=== PATIENT | female | born 1955 | race Caucasian/White ===

== ENCOUNTER 2016-11-28 09:28 | Observation (INO) | payer OTHER ==
[~2016-11-28] VITALS: Ht 167.6 cm; Wt 58.9 kg
[~2016-11-28 09:28] MED LIST: CYCL5TAB PO; HYDR4TAB PO; METH5TAB3 PO; RES15 PO
[2016-11-28 09:33] VITALS: BP 121/77; PULSE 103; RESP 18; O2SAT 95
--- NOTE | 2016-11-28 09:38 | ED.REPORT ---
HPI-Abd Pain F 40 and Over Date of Service Nov 28, 2016 ED Provider: Dr. Singh Pt is a 61 year old female with a hx of lung cancer presenting to the ED complaining of intermittent rectal pain onset over a week ago. Associated symptoms include constipation. She denies vomiting or fever. She reports that she has had normal colored stool, but that it has been a sort of "paste." Nursing Notes Stated Complaint: RECTUM SWELLING Chief Complaint: Female Abdominal Pain Nursing Notes Reviewed: Yes Allergies: Coded Allergies: Sulfa (Sulfonamide Antibiotics) (Verified Allergy, Unknown, 11/28/16) aspirin (Verified Adverse Reaction, Unknown, unknown, 11/28/16) Scheduled Amoxicillin/Clav K 875-125 mg (Augmentin 875-125 mg) 1 Each Tablet 1 TABLET PO BID Methadone (Methadone) 5 Mg Tablet 5 MG PO Q12H Scheduled PRN Hydrocortisone (Cortaid) 1 % Cream..g. 42 GM TP BID PRN PRN For Itching Hydromorphone (Hydromorphone) 4 Mg Tablet 4-8 MG PO Q4H PRN PRN Pain Polyethylene Glycol 3350 (Miralax) 17 Gm Powd.pack 17 GM PO DAILY PRN PRN For Constipation General Time Seen by MD: 09:38 Chief Complaint Other (Rectal pain) Hx Obtained From: Patient Arrived By: Walk-in Sudden in Onset?: No Onset Occurred: More than a week ago... Symptom Duration: Since onset Progression since Onset: Intermittent Quality: Painful Severity: Current: Moderate Severity: Maximum: Severe Recent Healthcare: No recent doctor visit, No recent hospitalization Similar Sx Previous: No Past Medical History Past Medical History 1. Metastatic lung cancer 2. Stroke in August 2015 without residual neurologic deficits 3. History of kidney stones. 4. She was told before that she has hepatitis C, but needs to be retested. 5. COPD 6. Degenerative joint disease 7. Gastroesophageal reflux disease. Past Surgical History Kidney stone removal, nasal surgery, and cleft palate surgery Smoking History Former Smoker Ambulatory Status Independent Review of Systems Constitutional: Denies: Fever GI: Reports: Constipation, Rectal pain, Denies: Nausea, Vomiting Complete sys rev & neg: except as marked. Physical Exam Vital Signs Vital Signs (First) Date Time Temp Pulse Resp B/P Pulse Ox O2 Delivery O2 Flow Rate FiO2 11/28/16 09:33 36.6 103 18 121/77 95 Room Air Initial VS: Reviewed Head / Eyes: Atraumatic, Normocephalic, PERRL ENT: Mucous membranes moist, Conjunctiva normal, No scleral icterus Neck: Supple, Non-tender, Full range of motion Skin: Warm, Dry, No cyanosis Neurologic: Alert, Oriented, Nonfocal Psychiatric: Mood/affect normal, Behavior normal, Normal thought content General/Constitutional: Awake, Alert, No acute distress, Well appearing Respiratory / Chest: No respiratory distress Abdomen: Non-tender, No distention Rectum / Perineum: Atraumatic, No gross blood Normal brown stool. No rectal prolapse. Perirectal fullness between the 12 o'clock and 2 o'clock position. Internal rectal mass 1 cm in size. Interpretation & Diagnostics Lab Results Interpretation Result Diagram: 11/28/16 1026 11/28/16 1026 Test 11/28/16 10:26 White Blood Count 12.6th/mm3 (3.8-10.1) Red Blood Count 4.59mil/mm3 (3.90-5.20) Hemoglobin 12.1g/dL (12.0-15.6) Hematocrit 37.7% (35.0-46.0) Mean Corpuscular Volume 82.1fL (81-100) Mean Corpuscular Hemoglobin 26.4pg (27.0-35.0) Mean Corpuscular Hemoglobin Concent 32.1% (32.0-37.0) Red Cell Distribution Width 16.4% (12.3-15.4) Platelet Count 434bil/L (150-400) Neutrophils (%) (Auto) 72.1% (40-74) Lymphocytes (%) (Auto) 8.6% (14-46) Monocytes (%) (Auto) 15.0% (4-12) Eosinophils (%) (Auto) 3.5% (0-5) Basophils (%) (Auto) 0.4% (0-3) Sodium Level 136mEq/L (134-144) Potassium Level 3.1mEq/L (3.5-5.2) Chloride Level 97mEq/L (97-108) Carbon Dioxide Level 25mmol/L (18-29) Blood Urea Nitrogen 7mg/dL (8-27) Creatinine 0.40mg/dL (0.57-1.00) Estimat Glomerular Filtration Rate 233mL/min (>59) Glucose Level 149mg/dL (60-99) Calcium Level 10.3mg/dL (8.5-10.1) Total Bilirubin 0.3mg/dL (0.0-1.2) Aspartate Amino Transf (AST/SGOT) 21U/L (0-50) Alanine Aminotransferase (ALT/SGPT) 22U/L (0-32) Alkaline Phosphatase 60U/L (25-165) Total Protein 7.2g/dL (6.4-8.4) Albumin 3.1g/dL (3.4-5.0) CT Abd / Pelvis Interpretation IMPRESSION: 1. A large amount of stool in colon and rectum. 2. No rectal mass identified on CT. Small rectal mass may not be visible on CT. Endoscopic examination suggested if clinically indicated. 3. Atherosclerosis. Dictated by: Isabel Ramsey M.D. on 11/28/2016 at 13:40 Study type: Abdominal CT IV contrast, Abdom CT oral contrast Interpretation / Wet Read by: Interpret - Radiologist Re-Eval/Medical Decision Med Decision/Clinical Course Patient has severe constipation, overall the story that she gives sounds like severe Constipation with associated straining and dilation of the rectal area and possibly intermittent rectal prolapse. on digital rectal exam, there is no prolapse or external hemorrhoid, she is not completely impacted, the stool is beyond the tip of my glove, and I am unable to do a digital manual extraction. Stool was brown and nonbloody She also had a mass or fullness from approximately 12:00 to 2 o'clock position in the perirectal area that overall does not feel the full clinical picture of abscess, and raise some suspicion about the possibility of cancer, after discussion with surgery, needle aspiration was performed and no purulent drainage was expressed. Additionally there was an internal mass of approximately a centimeter or less in size unclear whether this was an internal hemorrhoid or some other cancer. In terms of treatment, she received mag citrate and an enema. The plan was to discharge her home. Unfortunately she did not have the meaningful or substantive bowel movement while in the ER and is extremely hesitant to leave without having her chronic constipation resolved. She is ultimately admitted. Re-Evaluation/Progress #1: Time of Eval: 13:57 Patient Status: Condition improved Re-Evaluation/Progress Note: Discussed consultation with Dr. Bolivar and plan for discharge and follow up. Re-Evaluation/Progress #2: Time of Eval: 14:22 Patient Status: Condition improved Re-Evaluation/Progress Note: Performed an incision and drainage of the external mass. No drainage. No pus. Re-Evaluation/Progress #3: Time of Eval: 15:55 Patient Status: Condition improved Re-Evaluation/Progress Note: Pt refuses to leave the ER until she has had a bowel movement. Re-Evaluation/Progress #4: Time of Eval: 16:54 Patient Status: Condition improved Re-Evaluation/Progress Note: Discussed again the plan for discharge and follow up with surgery next week. Pt stating that she would like to be admitted until then. I explained to her why that is not necessary. The pt's mother is still insisting that the pt be admitted. Re-Evaluation/Progress #5: Time of Eval: 17:11 Re-Evaluation/Progress Note: Pt once again refuses to go home. Insists that she must be admitted. Consultation #1: Referral / Consult Name: Nathan Bolivar MD Call Returned at: 13:[address]: Will see patient, Will see in office, Agrees with eval, Agrees with plan Note: Discussed the pt plan, he recommends that the pt follow up with him in the clinic. Consultation #2: Referral / Consult Name: Nathan Bolivar MD Call Returned at: 14:02 Note: Dr. Bolivar agrees with starting antibiotics and close follow up in clinic. Don't cut into the mass, however could try needle aspiration. Consultation #3: Referral / Consult Name: Nathan Bolivar MD Call Returned at: 17:13 Note: Informed Dr. Bolivar that the pt will be admitted. They will call him in the morning if needed. Consultation #4: Referral / Consult Name: Tommy Guadalupe MD Call Returned at: 17:[address]: Accepts admit Counseled Regarding: Diagnosis, Lab results, Need for follow-up, When/why to return to ED Discharge & Departure Primary Impression: Constipation Constipation type: unspecified constipation type Qualified Code: K59.00 - Constipation, unspecified Additional Impression: Rectal mass Disposition: ADMITTED TO HOSPITAL Discharge Condition All VS Reviewed: Yes Condition: Improved Referrals: George Ag MD (PCP) Nathan Bolivar MD Scribe Attestation Portions of this note were transcribed by Renee Ambrose. Ruth, Dr. Singh personally performed the history, physical exam and medical decision-making; I reviewed and confirmed the accuracy of the information in the transcribed note. Signed by: Stephenie Ryan, 11/28/2016 at 1446. copies to: George Ag MD; Nathan Bolivar MD, Timothy S DO Nov 28, 2016 09:38 RENEE AMBROSE Nov 28, 2016 09:49 Nathan Bolivar MD Attestation Portions of this note were transcribed by Renee Ambrose. I, Dr. Singh personally performed the history, physical exam and medical decision-making; I reviewed and confirmed the accuracy of the information in the transcribed note. Signed by: Stephenie Ryan, 11/28/2016 at 1446. copies to: George Ag MD; Nathan Bolivar MD, Timothy S DO Nov 28, 2016 09:38 RENEE AMBROSE Nov 28, 2016 09:49
[2016-11-28] MEDS ORDERED: HYDR42CR3 TP (10:01)
[2016-11-28] MEDS ORDERED: Iohexol 300 mg/mL 30 mL Inj PO ONE (10:10)
[2016-11-28 10:30] LABS: BASOPHILS % (AUTO) 0.4 % (0-3); EOSINOPHILS % (AUTO) 3.5 % (0-5); Mean Corpuscular Hemoglobin 26.4 pg (27.0-35.0); Mean Corpuscular Volume 82.1 fL (81-100); NEUTROPHILS % (AUTO) 72.1 % (40-74); Platelet Count 434 bil/L (150-400)
--- NOTE | 2016-11-28 13:46 | DRSVH ---
PROCEDURE: CT PELVIS WITH CONTRAST ([id number]) INDICATIONS: rectal mass TECHNIQUE: After the administration of oral contrast and intravenous contrast, 5 mm thick sections acquired from the iliac crests to the symphysis. 5 mm thick coronal and sagittal reformats were acquired. For ra diation dose reduction, the following was used: automated exposure control, adjustment of mA and/or kV according to patient size. COMPARISON: Outside Film, NM, PET NECK TO MID THIGH STD, 09/06/2016, 9:05. FINDINGS: Image quality: Excellent. Peritoneum and bowel: There is a large amount stool in colon and rectum. No rectal mass is identifie d. Contrast enhanced bowel loops demonstrate normal wall thickness and caliber. No free fluid or air . Genitourinary: Bladder wall thickness is normal. Nodes and vessels: Moderate atherosclerosis in distal aorta. No iliac, pelvic, or inguinal adenopathy . Iliac vessels demonstrate normal size and enhancement. Bones: No suspicious bony lesions. Miscellaneous: No inguinal hernias. IMPRESSION: 1. A large amount of stool in colon and rectum. 2. No rectal mass identified on CT. Small rectal mass may not be visible on CT. Endoscopic examinatio n suggested if clinically indicated. 3. Atherosclerosis. Dictated by: Isabel Ramsey M.D. on 11/28/2016 at 13:40 Approved by: Isabel Ramsey M.D. on 11/28/2016 at 13:44
[2016-11-28] MEDS ORDERED: AMOX-366 PO (14:42)
[2016-11-28] MEDS ORDERED: POLY17PO6 PO (14:42)
[2016-11-28] MEDS ORDERED: Amoxicillin-Clav 875-125 mg Tablet PO ONE (14:45)
[2016-11-28 16:05] VITALS: BP 151/70; RESP 16; O2SAT 99
[2016-11-28] MEDS ORDERED: Ondansetron 2 mg/mL 2 mL Inj IVPUSH PRN ×2 (17:40→17:55)
[2016-11-28] MEDS ORDERED: Alum-Mag Hydrox-Simeth 30 mL Suspension PO PRN ×2 (17:40→17:55)
--- NOTE | 2016-11-28 17:48 | NUR ---
Case Management D: Requested by Dr Singh to discuss with pt her potential cost of admission if her insurance company does not find it medically necessary. Dr Singh ED MD attempted to discharge pt after consulting with Dr Bolivar, surgeon and setting up out patient follow up with him. Per Dr Singh, it is not medically necessary for patient to be admitted to hospital. Patient refusing to be discharged. Notice of nonpayment was explained to pt and she signed. Copy given to patient. P: Pt being admitted to hospital
[2016-11-28] MEDS ORDERED: Polyethylene Glycol (PEG) 17 Gm Powder PO PRN (17:55)
[2016-11-28 18:02] VITALS: BP 137/81; PULSE 90; RESP 16; O2SAT 93
--- NOTE | 2016-11-28 18:03 | PCM.HPMED ---
Subjective Date of Service Nov 28, 2016 Primary Provider: Admitting Physician: Tommy Guadalupe MD Primary Care Physician: George Ag MD Attending Physician: Tommy Guadalupe MD Chief Complaint: Rectal pain, constipation History of Present Illness: This is a 61 years old female with past medical history of lung cancer , on chemotherapy , who presented to the ER complaining about rectal pain and constipation. Patient stated she had something about the size of a apple around her anus for a month or so. She has been constipated for a week now. In ER she was found to have possibly a small mass on rectal exam but to clear the doubt a CT scan was done and was negative. No vomiting , no nausea, no abdominal pain, no fever, no chills , no cp, no SOB Patient received a cocktail for constipation including magnesium citrate and enema without any improvement . She is also hypokalemic and has elevated calcium level . She is being kept to observation Review of Systems: A comprehensive review is negative except for rectal pain as described in HPI Allergies Coded Allergies: Sulfa (Sulfonamide Antibiotics) (Verified Allergy, Unknown, 11/28/16) aspirin (Verified Adverse Reaction, Unknown, unknown, 11/28/16) Home Medications Scheduled Amoxicillin/Clav K 875-125 mg (Augmentin 875-125 mg) 1 Each Tablet 1 TABLET PO BID Methadone (Methadone) 5 Mg Tablet 5 MG PO Q12H Scheduled PRN Hydrocortisone (Cortaid) 1 % Cream..g. 42 GM TP BID PRN PRN For Itching Hydromorphone (Hydromorphone) 4 Mg Tablet 4-8 MG PO Q4H PRN PRN Pain Polyethylene Glycol 3350 (Miralax) 17 Gm Powd.pack 17 GM PO DAILY PRN PRN For Constipation PMH 1. Metastatic lung cancer, ( Currently on chemotherapy) 2. Stroke in August 2015 without residual neurologic deficits 3. History of kidney stones. 4. She was told before that she has hepatitis C, but needs to be retested. 5. COPD 6. Degenerative joint disease 7. Gastroesophageal reflux disease. Surgical History Kidney stone removal, nasal surgery, and cleft palate surgery Family History Reviewed and is non contributory to the present illness Social History Hx Alcohol Use: Yes (OCCASIONALLY) Hx Substance Use: No Smoking Status: Former Smoker Living Arrangement: with Family Exam Vital Signs Vital Sign - Last Date Time Temp Pulse Resp B/P Pulse Ox O2 Delivery O2 Flow Rate FiO2 11/28/16 16:05 36.9 16 151/70 99 Room Air 11/28/16 09:33 103 Exam General/conditional: Not to distress. AAO x 3 HEENT : Hector. Sclerae is anicteric Mouth: Oral mucosa, no oral thrush Neck: Supple, no JVD, no carotid bruit, trachea is midline Chest: normal respiratory effort. No deformities Heart: S1, S2 regular rate and rhythm no gallop, no murmur. Lung: Clear bilaterally to auscultation, no crackles, no wheezing Abdomen: Soft, non tender, non distended . BS nomal all quadrants Extremity: No cyanosis, no edema, tenderness Skin: No rash , no ulcer. Neuro :AAO x 3. Anxious , Grossly non focal Lab and Diagnostics Result Diagram: 11/28/16 1026 11/28/16 1026 X-Rays, CTs and MRIs Abdominal and pelvic CT scan reviewed : 1. A large amount of stool in colon and rectum. 2. No rectal mass identified on CT. Small rectal mass may not be visible on CT. Endoscopic examination suggested if clinically indicated. 3. Atherosclerosis. Assessment & Plan 1. Rectal pain 2. Constipation 3. Hypoglycemia 4. Hypercalcemia of malignancy Put to observation. Pain control with Morphine sulfate . Stool softener and enema PRN . Constipation is due to narcotic and rectal pain Replace potassium . Start NS @ 100 ml/hr for hypercalcemia Mild leukocytosis without any signs or symptoms of constipation Enoxaparin for DVT prophylaxis Home medications reviewed and reconciled cbc and BMP in am Pain Evaluation: Adequate Pain Control VTE Prophylaxis: Sub-Q Heparin (Unfractionated) Resuscitation Status: CPR: Attempt Resuscitation Time spent 75 minutes Tommy Guadalupe MD Nov 28, 2016 18:03
[2016-11-28 18:50] VITALS: BP 162/84; PULSE 89; RESP 17; O2SAT 94
--- NOTE | 2016-11-28 18:50 | NUR ---
Arrival to unit Patient arrived to [facility] during shift change report. CARLOS Sanders greeted patient and got settled. Gave report to night RN and said hello to patient.
[2016-11-28] MEDS: 0.9% Sodium Chloride 1,000 ML IV SCH (19:42)
[2016-11-29 00:50] VITALS: BP 150/84; PULSE 84; RESP 18; O2SAT 96
[2016-11-29] MEDS: 0.9% Sodium Chloride 1,000 ML IV SCH (03:55)
--- NOTE | 2016-11-29 04:53 | NUR ---
No BM Pt comfortable in bed, states pain to L shoulder r/t cancer and abdominal cramps r/t constipation. No requests for pain medication or antiemetic. NS infusing at 100 ml/h. Pt ambulates to BR independently, no SOB or chest pain. Care continues
--- NOTE | 2016-11-29 05:35 | NUR ---
IV Infiltrated DCd iv from R hand, catheter intact
[2016-11-29 06:20] LABS: Mean Corpuscular Hemoglobin 25.8 pg (27.0-35.0); Mean Corpuscular Volume 83.1 fL (81-100)
--- NOTE | 2016-11-29 06:27 | NUR ---
Dilauded/Methadone Home Meds Pt took dilauded and methadone meds that she brought from home, states that she took them around midnight and then again at 0530 as this is her normal schedule. She has not reported pain through this shift. This RN inventoried meds and placed in secure bag, they will be delivered to pharmacy along with ondansatron, omeprazole, maureen, and pepto bismol that were also in the patient's bag.
[2016-11-29 06:49] VITALS: BP 146/76; PULSE 77; RESP 16; O2SAT 94
--- NOTE | 2016-11-29 10:20 | PCM.DIMED ---
Discharge Instructions Date of Service Nov 29, 2016 Dates of Hospitalization Nov 28, 2016 at 17:35 Discharge Diagnosis Discharge Diagnosis 1. Retal pain, 2. Constipation, 3. Lung cancer with mets Diet No restrictions, Heart Healthy Activity No restrictions Patient Instructions Follow up with primary care doctor and oncologist within one week Follow-up with PCP in: 1 week (Primary car doctor and Oncology ) Tommy Guadalupe MD Nov 29, 2016 10:20
[2016-11-29] MEDS ORDERED: LACT10SO27 PO (10:22)
--- NOTE | 2016-11-29 10:25 | NUR ---
Social Work-screening/discharge: Data:EMR reviewed. Pt is a 61 y/o female who was admitted on 11/28/16for constipation per H&P. Pt's insurance is [employer] and PCP is George Ag MD. EMR Reviewed. Pt is medically stable for discharge today. SW attempted to see pt, but pt already discharged home with son. Pt has been up independent in her room. No discharge needs identified. All updated and agreeable to plan. Assessment:Pt who is independent at baseline. Plan:Pt to discharge home today via POV. No discharge needs identified. All updated and agreeable to plan. CARLYN Castle
--- NOTE | 2016-11-29 10:57 | NUR ---
Discharge Pt DC'ed home with her son and her mother via private vehicle. Pt feels that she is a burden to them and wishes to find independent housing, which they are working on at this time. Family is agreeable to DC plan and discussion had independently and as a group to confirm this was a safe environment for her to go home to after refusing to DC from the ER last night. Teaching performed on narcotic induced constipation and need to continue the conversation with Dr. Henry tomorrow. She was given a prescription for Lactulose and encouraged to walk and hydrate to encourage a BM. Pt was given her home medications and promptly took her pain meds.
--- NOTE | 2016-11-29 11:27 | PCM.DC.MED ---
Discharge Summary Date of Service Nov 29, 2016 Dates of Hospitalization Date of Hospital Admission Nov 28, 2016 at 17:35 Date of Discharge: Nov 29, 2016 Providers: Admitting Physician: Tommy Hair MD Primary Care Physician: George Ag MD Attending Physician: Tommy Hair MD Diagnosis at Time of Discharge Diagnosis at Time of Discharge 1. Retal pain, 2. Constipation, 3. Lung cancer with mets Consultations None Procedures XRay, CTs & MRIs Abdominal and pelvic CT scan reviewed : 1. A large amount of stool in colon and rectum. 2. No rectal mass identified on CT. Small rectal mass may not be visible on CT. Endoscopic examination suggested if clinically indicated. 3. Atherosclerosis. Brief History This is a 61 years old female with past medical history of lung cancer , on chemotherapy , who presented to the ER complaining about rectal pain and constipation. Patient stated she had something about the size of a apple around her anus for a month or so. She has been constipated for a week now. In ER she was found to have possibly a small mass on rectal exam but to clear the doubt a CT scan was done and was negative. No vomiting , no nausea, no abdominal pain, no fever, no chills , no cp, no SOB Patient received a cocktail for constipation including magnesium citrate and enema without any improvement . She is also hypokalemic and has elevated calcium level . She was kept to observation Hospital Course 1. Rectal pain 2. Constipation 3. Hypoglycemia 4. Hypercalcemia of malignancy Her symptoms resolved and she is feeling better today. She was reported taking additional dose of narcotics from her own medication last night . Patient is counseled about side effect of narcotics and need to take stool softener and have a high fiber diet. She is discharged in stable condition.. Her son and mother came to pick her up. I had a conversation with them about some social issues the patient had recently . She is homeless and currently living with her son and alternately with her mother. They do have an appointment with social media marketing manager for next . She will resume her treatment for lung cancer as outpatient with her primary oncologist Exam Vital Signs (Last) Date Time Temp Pulse Resp B/P Pulse Ox O2 Delivery O2 Flow Rate FiO2 11/29/16 06:49 36.4 77 16 146/76 94 Room Air Exam General: No acute distress. In bed comfortably HEENT: PERRL . Sclerae is anicteric Mouth : Moist oropharyngeal mucosa. Neck: supple, trachea is midline Chest:clear to auscultation and percussion. There are no rales, rhonchi, wheezes or rubs. Heart: S1, S2 regular Rate, rhythm is regular. There is no murmur, rub or gallop. Abdomen: Soft, non-tender, non-distended. Normal bowel sounds on quadrant Extremities: No edema, no cyanosis Neurologic: Grossly non focal Test 11/28/16 10:26 11/29/16 05:10 11/29/16 05:35 Neutrophils (%) (Auto) 72.1% (40-74) Lymphocytes (%) (Auto) 8.6% (14-46) Monocytes (%) (Auto) 15.0% (4-12) Eosinophils (%) (Auto) 3.5% (0-5) Basophils (%) (Auto) 0.4% (0-3) Hold Urine Received (Received) White Blood Count 12.3th/mm3 (3.8-10.1) Red Blood Count 4.49mil/mm3 (3.90-5.20) Hemoglobin 11.6g/dL (12.0-15.6) Hematocrit 37.3% (35.0-46.0) Mean Corpuscular Volume 83.1fL (81-100) Mean Corpuscular Hemoglobin 25.8pg (27.0-35.0) Mean Corpuscular Hemoglobin Concent 31.1% (32.0-37.0) Red Cell Distribution Width 16.4% (12.3-15.4) Platelet Count 414bil/L (150-400) Sodium Level 137mEq/L (134-144) Potassium Level 3.8mEq/L (3.5-5.2) Chloride Level 98mEq/L (97-108) Carbon Dioxide Level 26mmol/L (18-29) Blood Urea Nitrogen 4mg/dL (8-27) Creatinine 0.36mg/dL (0.57-1.00) Estimat Glomerular Filtration Rate 263mL/min (>59) Glucose Level 108mg/dL (60-99) Calcium Level 9.5mg/dL (8.5-10.1) Total Bilirubin 0.4mg/dL (0.0-1.2) Aspartate Amino Transf (AST/SGOT) 22U/L (0-50) Alanine Aminotransferase (ALT/SGPT) 20U/L (0-32) Alkaline Phosphatase 60U/L (25-165) Total Protein 6.4g/dL (6.4-8.4) Albumin 2.9g/dL (3.4-5.0) Discharge Medications Discharge Medications Methadone (Methadone) 5 Mg Tablet 5 MG PO Q12H (Reported) As needed Hydrocortisone (Cortaid) 1 % Cream..g. 42 GM TP BID PRN PRN For Itching ( Reported) Hydromorphone (Hydromorphone) 4 Mg Tablet 4-12 MG PO Q4H PRN PRN Pain (Reported ) Lactulose (Lactulose) 10 Gm/15 Ml Solution 10 GM PO DAILY PRN PRN for constipation of more than Prescribed by: TOMMY HAIR MD Polyethylene Glycol 3350 (Miralax) 17 Gm Powd.pack 17 GM PO DAILY PRN PRN For Constipation Prescribed by: NATHAN SCOTT DO Followup Plan Disposition: Home Follow-up plan Follow up with primary care doctor and oncology within one week Discharge Diet: No restrictions, Heart Healthy Discharge Activity: No restrictions Patient Instructions Follow up with primary care doctor and oncologist within one week Follow-up with PCP in: 1 week (Follow up with primary care doctor and oncology) Follow-up in: 1 week Time spent 25 minutes Tommy Hair MD Nov 29, 2016 11:27
== END 2016-11-29 10:35 | disposition home or self-care (01) ==
LOC: SED 09:28 → OSC 17:35
PROVIDERS: ADMIT Internal Medicine; ATTEND Internal Medicine
DX: K62.89 Other specified diseases of anus and rectum (principal); K59.00 Constipation, unspecified; C34.90 Malignant neoplasm of unspecified part of unspecified bronchus or lung; E83.52 Hypercalcemia; E16.2 Hypoglycemia, unspecified; J44.9 Chronic obstructive pulmonary disease, unspecified; M19.90 Unspecified osteoarthritis, unspecified site; K21.9 Gastro-esophageal reflux disease without esophagitis; Z86.73 Personal history of transient ischemic attack (TIA), and cerebral infarction without residual deficits; Z92.21 Personal history of antineoplastic chemotherapy; Z87.891 Personal history of nicotine dependence
CPT/HCPCS: 36415; 72193; 80053; 85025; 85027; 99285; G0378; J1650; J7030; Q9967

== ENCOUNTER 2017-01-11 13:37 | Emergency (ER) | payer OTHER ==
[~2017-01-11] VITALS: Ht 167.6 cm; Wt 55.9 kg
[~2017-01-11 13:37] MED LIST changes: -CYCL5TAB PO; +HYDR42CR3 TP; +LACT10SO27 PO; +POLY17PO6 PO; -RES15 PO
--- NOTE | 2017-01-11 13:53 | ED.REPORT ---
HPI-General Illness Date of Service January 11, 2017 ED Provider: Juan Luis Gómez MD Patient is a 61 year old female with a history of metastatic lung cancer, hypertension, CVA, COPD and Hep C who presents to the ED via EMS due to chest tightness. Associated symptoms include incontinence and feeling like she was going to pass out. She denies rash, throat swelling or rash. Per the patient's friend, the patient became very red while at the cancer center. The patient reports that she began feeling this way right as her treatment was beginning but her symptoms have since resolved. Per the EMS, the patient started coughing and yelled for help. Nursing Notes Stated Complaint: DEC LOC Nursing Notes Reviewed: Yes Allergies: Coded Allergies: Sulfa (Sulfonamide Antibiotics) (Verified Allergy, Unknown, 11/28/16) aspirin (Verified Adverse Reaction, Unknown, unknown, 11/28/16) Scheduled Methadone (Methadone) 5 Mg Tablet 5 MG PO Q12H Scheduled PRN Hydrocortisone (Cortaid) 1 % Cream..g. 42 GM TP BID PRN PRN For Itching Hydromorphone (Hydromorphone) 4 Mg Tablet 4-12 MG PO Q4H PRN PRN Pain Lactulose (Lactulose) 10 Gm/15 Ml Solution 10 GM PO DAILY PRN PRN for constipation of more than Polyethylene Glycol 3350 (Miralax) 17 Gm Powd.pack 17 GM PO DAILY PRN PRN For Constipation General Time Seen by MD: 13:53 Chief Complaint Other (chest tightness) Hx Obtained From: Patient, EMS Arrived By: Ambulance Sudden in Onset?: Yes Onset Occurred: Just prior to arrival Past Medical History Past Medical History 1. Metastatic lung cancer 2. Stroke in August 2015 without residual neurologic deficits 3. History of kidney stones. 4. She was told before that she has hepatitis C, but needs to be retested. 5. COPD 6. Degenerative joint disease 7. Gastroesophageal reflux disease. Past Surgical History Kidney stone removal, nasal surgery, and cleft palate surgery Smoking History Former Smoker Ambulatory Status Independent Review of Systems felt like she was going to pass out Full Review of Systems Ears / Nose / Throat: Denies: Throat swelling Respiratory: Reports: Non-productive cough Cardiovascular: Reports: Chest pain ("tightness") Female: Reports: Incontinence Skin: Denies Itching, Denies Rash Allergy / Immune: Denies: Hives Complete sys rev & neg: except as marked. Physical Exam Vital Signs Vital Signs Date Time Temp Pulse Resp B/P Pulse Ox O2 Delivery O2 Flow Rate FiO2 01/11/17 14:27 90 15 122/61 95 Room Air 01/11/17 14:02 97 15 151/42 94 Room Air General/Constitutional: Awake, Alert Respiratory / Chest: Atraumatic, Breath sounds NL, Breath sounds = bilat, No respiratory distress palpable subcutaneous mass on the left upper chest Cardiovascular: Heart rate NL, Regular rhythm systolic murmur in the left lower external border Abdomen: Atraumatic, Soft, Non-tender Skin: Atraumatic, Color NL, No rash, Warm, Dry Neurologic: Oriented X3, Speech NL, No motor deficits, No sensory deficits Psychiatric: Affect NL, Mood NL Interpretation & Diagnostics Lab Results Interpretation Result Diagram: 01/11/17 1455 01/11/17 1455 Test 01/11/17 14:55 White Blood Count 23.7th/mm3 (3.8-10.1) Red Blood Count 4.51mil/mm3 (3.90-5.20) Hemoglobin 12.1g/dL (12.0-15.6) Hematocrit 37.1% (35.0-46.0) Mean Corpuscular Volume 82.3fL (81-100) Mean Corpuscular Hemoglobin 26.8pg (27.0-35.0) Mean Corpuscular Hemoglobin Concent 32.6% (32.0-37.0) Red Cell Distribution Width 14.7% (12.3-15.4) Platelet Count 401bil/L (150-400) Neutrophils (%) (Auto) 95.9% (40-74) Lymphocytes (%) (Auto) 1.3% (14-46) Monocytes (%) (Auto) 2.0% (4-12) Eosinophils (%) (Auto) 0.3% (0-5) Basophils (%) (Auto) 0.1% (0-3) D-Dimer 1.39mg/L FEU (<0.50) Sodium Level 132mEq/L (134-144) Potassium Level 4.1mEq/L (3.5-5.2) Chloride Level 98mEq/L (97-108) Carbon Dioxide Level 20mmol/L (18-29) Blood Urea Nitrogen 10mg/dL (8-27) Creatinine 0.47mg/dL (0.57-1.00) Estimat Glomerular Filtration Rate 194mL/min (>59) Glucose Level 137mg/dL (60-99) Calcium Level 10.1mg/dL (8.5-10.1) Magnesium Level 1.8mg/dL (1.6-2.6) Total Bilirubin 0.5mg/dL (0.0-1.2) Aspartate Amino Transf (AST/SGOT) 28U/L (0-50) Alanine Aminotransferase (ALT/SGPT) 24U/L (0-32) Alkaline Phosphatase 72U/L (25-165) Troponin T < 0.010ug/L (0.0-0.011) Total Protein 6.0g/dL (6.4-8.4) Albumin 2.9g/dL (3.4-5.0) ECG Interpretation ECG Interpretation: inferior infarct, old Time: 14:16 Interpreted by: ED physician Normal ECG Interpretation: Normal rate (95), Normal sinus rhythm X-Ray Chest Interpretation Chest Xray Interpretation: IMPRESSION: No change with reference to the recent CT scanning from 01/06/17, large left lung mass and elevated left hemidiaphragm. Dictated by: Tom Elam M.D. on 01/11/2017 at 15:03 Approved by: Tom Elam M.D. on 01/11/2017 at 15:05 View: Portable, 1 view Interpretation / Wet Read by: Interpret - Radiologist Re-Eval/Medical Decision Med Decision/Clinical Course Patient presents after a syncopal and apneic episode while beginning an infusion of Taxol at the cancer center. Unclear whether this represents a adverse reaction to medication or may have represented cardiogenic syncope. Her EKG is reassuring for acute coronary syndrome, it seems that she has had protracted and prolonged leukocytosis without any obvious source for infection today. She is persistently low-grade tachycardic along with an elevated d-dimer and is currently awaiting CT scan as she is rather high risk for pulmonary embolism. Care will be transferred to Dr. Ennis. Source of Hx: Old records Time of Eval: 14:52 Patient Status: Condition improved Time of Eval: 15:45 Re-Evaluation/Progress Note: Overall patient is feeling better has indurated to and from the restroom. Discussed the need For CT angiogram of the chest. Counseled Regarding: Diagnosis, Lab results, Need for follow-up, When/why to return to ED Discharge & Departure Primary Impression: Syncope Discharge Condition All VS Reviewed: Yes Condition: Stable Referrals: George Ag MD (PCP) Care Transferred to: [facility] Transferred at: 16:24 Stephenie Attestation Portions of this note were transcribed by Thelma Ramos. I, Dr. Rain Lima personally performed the history, physical exam and medical decision-making; I reviewed and confirmed the accuracy of the information in the transcribed note. Signed by: Stephenie Quezada, 01/11/17 and 1500 copies to: George Ag MD, Timothy S DO January 11, 2017 13:53 Missy Ramos January 11, 2017 14:00
[2017-01-11] MEDS ORDERED: 0.9% Sodium Chloride 500 ML IV ONE (14:00)
[2017-01-11 14:02] VITALS: BP 151/42; PULSE 97; RESP 15; O2SAT 94
[2017-01-11 14:27] VITALS: BP 122/61; PULSE 90; RESP 15; O2SAT 95
--- NOTE | 2017-01-11 15:06 | DRSVH ---
PROCEDURE: X-RAY CHEST ONE VIEW, PORTABLE ([id number]) INDICATIONS: CHEST TIGHTNESS TECHNIQUE: One view of the chest was acquired. COMPARISON: [facility], CT, CT CHEST ABD PELVIS W CON, 01/06/2017, 10:05. Outside Film, CR, XR CHEST 2VW, 09/09/2016, 13:03. Outside Film, CR, XR CHEST 2VW, 08/19/2016, 16:32. FINDINGS: Surgical changes and devices: None. Lungs and pleura: No pleural effusions or pneumothorax. Lungs are unchanged from the most recent est imaging study, chest CT from 01/06/17 with a large left lung mass and elevation of the left hemidi aphragm. Mediastinum: Mediastinal contours appear mildly distorted as was previously the case to the lung mas s elevated diaphragm. Heart size is normal. Bones and chest wall: No suspicious bony lesions. Overlying soft tissues appear unremarkable. IMPRESSION: No change with reference to the recent CT scanning from 01/06/17, large left lung mass and elevated left hemidiaphragm. Dictated by: Tom Elam M.D. on 01/11/2017 at 15:03 Approved by: Tom Elam M.D. on 01/11/2017 at 15:05
[2017-01-11 15:07] LABS: BASOPHILS % (AUTO) 0.1 % (0-3); EOSINOPHILS % (AUTO) 0.3 % (0-5); Mean Corpuscular Hemoglobin 26.8 pg (27.0-35.0); Mean Corpuscular Volume 82.3 fL (81-100); NEUTROPHILS % (AUTO) 95.9 % (40-74); Platelet Count 401 bil/L (150-400)
[2017-01-11 15:37] LABS: Magnesium 1.8 mg/dL (1.6-2.6); TROPONIN T < 0.010 ug/L (0.0-0.011)
--- NOTE | 2017-01-11 16:48 | DRSVH ---
PROCEDURE: CT ANGIO CHEST PULMONARY EMBOLISM ([id number]) INDICATIONS: SYNCOPE, CANCER PATIENT, ELEVATED DDIMER TECHNIQUE: After the administration of intravenous contrast, 2 mm thick sections acquired from the pulmonary api allegra to the posterior costophrenic angles. 3-dimensional maximum intensity projection (MIP) coronal a nd sagittal reformats were then acquired through the thorax. For radiation dose reduction, the follo wing was used: automated exposure control, adjustment of mA and/or kV according to patient size. COMPARISON: [facility], CT, CT CHEST ABD PELVIS W CON, 01/06/2017, 10:05. FINDINGS: Image quality: Excellent. Pulmonary arteries: Pulmonary arteries are normal in size, and demonstrate no intraluminal filling d efects to suggest central pulmonary embolism. Left upper lobe lung mass causes mild narrowing of the left main pulmonary artery, however there is normal contrast opacification distal to the area of mild narrowing. Lungs and pleura: No acute lung opacities. Large left upper lobe lung mass which causes erosive proce ss in the left second rib and invades the anterior left chest wall is stable in size and contour comp ared to 01/06/2017. No pleural effusions or pneumothorax. Calcified granuloma in the right lung base i s stable compared to prior examination. Emphysematous changes with apical predominance are stable com pared to prior examination. Central and peripheral airways are patent. Mediastinum: Heart size is normal, without pericardial effusion. Aorticopulmonary window, prevascula r and subcarinal mediastinal lymphadenopathy is stable compared to 01/06/17. Calcified right hilar and mediastinal lymph nodes compatible sequela prior granulomatous disease noted. Thoracic aorta is norm al in caliber and enhancement. Esophagus is normal in caliber, without hiatal hernia. Bones and chest wall: No suspicious bony lesions. Ribs and thoracic spine appear intact throughout. Thyroid gland contains a hypoattenuating nodule in the left lobe that is stable compared to prior e xamination.. No axillary or supraclavicular adenopathy. Abdomen: Visualized upper abdominal solid organs appear normal in the early arterial phase of enhanc ement. IMPRESSION: 1. No pulmonary embolus. 2. Left upper lobe lung mass compatible with known lung carcinoma stable compared to 01/06/2017. 3. Mediastinal lymphadenopathy is compatible with metastatic disease stable compared to 01/06/17. Dictated by: aJnine Matias MD, PhD on 01/11/2017 at 16:38 Approved by: Janine Matias MD, PhD on 01/11/2017 at 16:46
== END 2017-01-11 17:51 | disposition home or self-care (01) ==
LOC: EDUNIT# 13:37 → SED 13:37 → EDBD 13:37 → SED 17:51
DX: R07.89 Other chest pain (principal); R55 Syncope and collapse; T45.1X5A Adverse effect of antineoplastic and immunosuppressive drugs, initial encounter; Y93.89 Activity, other specified; Y92.89 Other specified places as the place of occurrence of the external cause; Y99.8 Other external cause status; C79.9 Secondary malignant neoplasm of unspecified site; C34.12 Malignant neoplasm of upper lobe, left bronchus or lung; R05 Cough; J44.9 Chronic obstructive pulmonary disease, unspecified; I10 Essential (primary) hypertension; K21.9 Gastro-esophageal reflux disease without esophagitis; Z86.73 Personal history of transient ischemic attack (TIA), and cerebral infarction without residual deficits; Z87.891 Personal history of nicotine dependence; Z88.2 Allergy status to sulfonamides; Z88.8 Allergy status to other drugs, medicaments and biological substances
CPT/HCPCS: 36415; 71010; 71275; 80053; 83735; 84484; 85025; 85378; 93005; 96360; 99285; J7040; Q9967